=== PATIENT | female | born 1995 | race Caucasian/White ===

== ENCOUNTER 2018-01-15 04:14 | Emergency (ER) | payer BC ==
[~2018-01-15] VITALS: Ht 160 cm; Wt 56.7 kg
[2018-01-15] MEDS ORDERED: predniSONE 20 MG TABLET ONE (04:38)
[2018-01-15] MEDS ORDERED: ALBUTEROL SULFATE 2.5 MG/3 ML NEBU ONE (04:45)
[2018-01-15] MEDS ORDERED: predniSONE 20 MG TABLET PO ONE (04:45)
[2018-01-15] MEDS ORDERED: ALBUTEROL SULFATE 2.5 MG/3 ML NEBU NEB ONE (04:45)
--- NOTE | 2018-01-15 04:46 | NUR ---
RT at bedside. Breathing Tx ongoing.
--- NOTE | 2018-01-15 05:05 | NUR ---
Patient tolerated breathing tx at this time. No ase noted. VSS
--- NOTE | 2018-01-15 05:12 | NUR ---
Patient discharged to home in stable conditon. Written and verbal after care instructions given. Patient verbalizes understanding of instructions. Ambulated from ER with stable gait. All belongings with patient. VSS.
[2018-01-15 05:13] VITALS: BP 120/71
== END 2018-01-15 05:16 | disposition home or self-care (01) ==
LOC: ER 04:17
DX: J45.901 Unspecified asthma with (acute) exacerbation (principal); F17.200 Nicotine dependence, unspecified, uncomplicated
CPT/HCPCS: 94640; 99283; A4663; J7512

== ENCOUNTER 2018-02-27 19:30 | Emergency (ER) | payer BC ==
[~2018-02-27] VITALS: Ht 160 cm; Wt 59.0 kg
--- NOTE | 2018-02-27 21:22 | NUR ---
Dr. Knapp at bedside for MSE.
[2018-02-27 21:36] LABS: *URINE HCG, QUAL POSITIVE (NEGATIVE)
[2018-02-27 21:46] LABS: BASOPHILS # (AUTO) 0.1 K/uL (0.0-8.0); BASOPHILS % (AUTO) 0.5 % (0.0-2.0); EOSINOPHILS # (AUTO) 0.6 K/uL (0.0-0.7); EOSINOPHILS % (AUTO) 3.4 % (0.0-7.0); HEMATOCRIT 43.9 % (31.2-41.9); LYMPHOCYTES # (AUTO) 2.6 K/uL (20.0-40.0); LYMPHOCYTES % (AUTO) 15.8 % (20.5-51.5); MEAN CORPUSCULAR HEMOGLOBIN 26.6 uug (24.7-32.8); MEAN CORPUSCULAR HGB CONC 34 g/dL (32.3-35.6); MEAN CORPUSCULAR VOLUME 77.9 fL (75.5-95.3); MONOCYTES # (AUTO) 1.2 K/uL (2.0-10.0); MONOCYTES % (AUTO) 7.2 % (0.0-11.0); NEUTROPHILS # (AUTO) 12.1 K/uL (1.8-8.9); NEUTROPHILS % (AUTO) 73.1 % (38.5-71.5); PLATELET COUNT (AUTO) 369 K/uL (179-408); RED BLOOD CELL COUNT(AUTO) 5.64 MIL/uL (3.63-4.92); WHITE BLOOD COUNT (AUTO) 16.6 K/uL (3.8-11.8)
[2018-02-27 21:53] LABS: CREATININE 0.7 mg/dL (0.6-1.3); POTASSIUM 3.6 mmol/L (3.5-5.1)
[2018-02-27 21:57] LABS: BILIRUBIN,DIRECT 0.1 mg/dL (0.0-0.2); BILIRUBIN,TOTAL 0.4 mg/dL (0.2-1.0); TOTAL PROTEIN, SERUM 7.6 g/dL (6.4-8.2)
--- NOTE | 2018-02-27 22:51 | NUR ---
Jaclyn alfaro in ED - 02/27/18 at 2252 by VICTORINA Ultrasound at bedside.
--- NOTE | 2018-02-27 22:53 | NUR ---
Patient back to ER from ultrasound.
--- NOTE | 2018-02-28 00:03 | NUR ---
Patient discharged to home in stable conditon with family taking patient home. Written and verbal after care instructions given. Patient verbalizes understanding of instructions. Walked out of ER with no distress noted
[2018-02-28 00:04] VITALS: BP 110/77
== END 2018-02-28 00:06 | disposition home or self-care (01) ==
LOC: ER 19:35
DX: O20.0 Threatened abortion (principal); O99.511 Diseases of the respiratory system complicating pregnancy, first trimester; J45.909 Unspecified asthma, uncomplicated; O99.331 Smoking (tobacco) complicating pregnancy, first trimester; Z3A.01 Less than 8 weeks gestation of pregnancy
CPT/HCPCS: 36415; 76856; 84703; 85025; 86900; 86901; A4663